=== PATIENT | female | born 2005 | race Caucasian/White ===

== ENCOUNTER 2024-11-20 19:12 | Emergency (ER) | payer BC ==
[2024-11-20] MEDS ORDERED: Albuterol 2.5 MG (3 mL) NEB ONE (19:52)
[2024-11-20] MEDS ORDERED: Dexamethasone 10 MG/ML VIAL ONE (20:11)
[2024-11-20] MEDS ORDERED: Magnesium 2 GM/50 ML BAG (IN WATER) ONE (20:12)
== END 2024-11-20 20:53 | disposition home or self-care (01) ==
LOC: ERS 19:12
DX: J45.901 Unspecified asthma with (acute) exacerbation (principal); R06.4 Hyperventilation; R00.0 Tachycardia, unspecified; Z79.51 Long term (current) use of inhaled steroids; Z79.899 Other long term (current) drug therapy
CPT/HCPCS: 71045; 94644; 96374; 96375; J1100; J2060; J3475; J7611